=== PATIENT | female | born 1990 | race Caucasian/White ===

== ENCOUNTER 2020-03-19 20:35 | Emergency (ER) | payer OTHER ==
[~2020-03-19] VITALS: Ht 157.5 cm; Wt 64.5 kg
[2020-03-19 20:47] VITALS: Ht 157.5 cm; Wt 64.5 kg
[2020-03-19 22:11] LABS: UA SPECIFIC GRAVITY >=1.030 (1.005-1.035); microscopic required? YES; urine erythrocyte 3+ (NEGATIVE)
[2020-03-19 23:11] VITALS: BP 125/70
== END 2020-03-19 23:11 | disposition home or self-care (01) ==
LOC: ED 20:35
PROVIDERS: Emergency Medicine
DX: N39.0 Urinary tract infection, site not specified (principal)